=== PATIENT | female | born 1990 | race Caucasian/White ===

== ENCOUNTER 2017-02-14 09:15 | Day surgery (SDC) | payer OTHER ==
[~2017-02-14] VITALS: Ht 177.8 cm; Wt 99.0 kg
[~2017-02-14 09:15] MED LIST: ATARAX,VISTARIL25 MG PO; ENDOCET 5-3251 EACH PO; LICE CREAM RIN120 ML TP; LORTAB 10 MG-3473 ML PO; MOTRIN800 MG PO; NATALCARE RX1 TABLE1 PO; PEN-VEE K,VEET250 MG PO; REGLAN10 MG PO; SPRINTEC1 EACH PO; TRAZODONE HCL50 MG PO; Tamiflu PO; ZITHROMAX Z-PA250 MG PO
[2017-02-14 09:58] LABS: BASOPHIL COUNT 0.1 K/uL (0-0.1); EOSINOPHIL (%) 1.2 % (0-5); EOSINOPHIL COUNT 0.3 K/uL (0-0.3); HEMATOCRIT 43.2 % (36.0-46.0); IMMATURE GRANULOCYTE (%) 0.6 % (0.0-0.7); IMMATURE GRANULOCYTE COUNT 0.1 K/uL; INSTRUMENT ABS NEUTROPHIL CT 17.4 K/uL; LYMPHOCYTE COUNT 1.4 K/uL (1.0-2.8); MCH 28.1 PG (29.0-34.0); MCHC 32.2 G/DL (30.0-36.0); MCV 87.3 FL (83-99); MONOCYTE (%) 10.7 % (3-12); MONOCYTE COUNT 2.3 K/uL (0-0.8); NEUTROPHIL (%) 80.6 % (45-76); NEUTROPHIL COUNT 17.4 K/uL (1.8-6.4); PLATELET COUNT 326 K/uL (156-360); RBC DIS.WIDTH-CV 12.4 % (11.8-14.6); RBC DIS.WIDTH-SD 39.8 % (39-53); RED BLOOD COUNT 4.95 M/uL (3.80-5.20); WHITE BLOOD COUNT 21.5 K/uL (4.1-10.2)
[2017-02-14 10:11] LABS: CHLORIDE 104 mEq/L (99-109); SODIUM 139 mEq/L (136-147)
[2017-02-14 10:14] LABS: GLUCOSE 103 mg/dL (70-99)
[2017-02-14 10:15] LABS: ANION GAP 8 MEQ/L (2-14)
[2017-02-14 10:16] LABS: TOTAL BILIRUBIN 0.4 mg/dL (0.0-1.0)
[2017-02-14 10:17] LABS: ALKALINE PHOSPHATASE 83 IU/L (3-129); GFR ESTIMATE (CALCULATED) > 59 mL/min/
[2017-02-14 10:18] LABS: UREA NITROGEN (BUN) 9 mg/dL (9-23)
[2017-02-14 10:32] LABS: QUANTITATIVE HCG < 4.0 MIU/ML
[2017-02-14] MEDS ORDERED: CLEOCIN300 MG PO (13:39)
[2017-02-14 17:35] VITALS: BP 124/65
[2017-02-14 18:18] VITALS: BP 131/65
== END 2017-02-14 18:25 | disposition home or self-care (01) ==
LOC: EME 09:15 → SDC 15:50
PROVIDERS: Emergency Medicine
PROC: 0D9Q30Z Drainage of Anus with Drainage Device, Percutaneous Approach (ICD-10-PCS; principal; 2017-02-14)
DX: K61.1 Rectal abscess (principal); F17.210 Nicotine dependence, cigarettes, uncomplicated; K62.89 Other specified diseases of anus and rectum; Z82.49 Family history of ischemic heart disease and other diseases of the circulatory system; Z83.3 Family history of diabetes mellitus
CPT/HCPCS: 72193; 80053; 84702; 85025; 87070; 87075; 87076; 87185; 87205; 99281; 99285; J0330; J1100; J1885; J2250; J2405; J3010; J7030

== ENCOUNTER 2017-06-30 16:19 | Emergency (ER) | payer OTHER ==
[~2017-06-30] VITALS: Ht 177.8 cm; Wt 107.8 kg
[~2017-06-30 16:19] MED LIST changes: +CLEOCIN300 MG PO
[2017-06-30 16:28] VITALS: BP 126/85
[2017-06-30] MEDS ORDERED: NAPROXEN500 MG PO (16:31)
[2017-06-30] MEDS ORDERED: PERCOCET 5/31 TABLET PO (16:31)
== END 2017-06-30 17:10 | disposition home or self-care (01) ==
LOC: EME 16:19
DX: M54.5 Low back pain (principal); G89.29 Other chronic pain
CPT/HCPCS: 99281; 99283; J1885; J8540

== ENCOUNTER 2018-07-08 19:17 | Emergency (ER) | payer OTHER ==
[~2018-07-08] VITALS: Ht 177.8 cm; Wt 112.3 kg
[~2018-07-08 19:17] MED LIST changes: +NAPROXEN500 MG PO; +PERCOCET 5/31 TABLET PO
[2018-07-08] MEDS ORDERED: NAPROSYN500 MG PO (22:34)
[2018-07-08 23:41] VITALS: BP 124/78
== END 2018-07-08 23:42 | disposition home or self-care (01) ==
LOC: EME 19:17
DX: S86.811A Strain of other muscle(s) and tendon(s) at lower leg level, right leg, initial encounter (principal); R22.41 Localized swelling, mass and lump, right lower limb; Y93.39 Activity, other involving climbing, rappelling and jumping off; F17.200 Nicotine dependence, unspecified, uncomplicated
CPT/HCPCS: 93971; 99281; 99284